=== PATIENT | male | born 1980 | race Caucasian/White ===

== ENCOUNTER 2018-04-01 05:44 | Emergency (ER) | payer OTHER ==
[2018-04-01 05:55] VITALS: RESP 18; TEMP 98.1
[2018-04-01] MEDS ORDERED: PROPARACAINE 0.5% OPHTH DROPS 15 ML BTL BOTH EYES STA (06:21)
[2018-04-01] MEDS ORDERED: DIPH,PERTUS(ACELL)TETVAC-LF 0.5 ML VIAL IM ONE (07:24)
[2018-04-01] MEDS ORDERED: TROPICAMIDE 1% OPHTH DROPS 2 ML BTL RIGHT EYE STA (07:24)
--- NOTE | 2018-04-01 07:31 | ED ---
Eye Problem HPI - General Source: patient Mode of arrival: ambulatory Limitations: no limitations - History of Present Illness chief complaint: eye pain, eye redness -: hour(s) Onset Description: gradual Location: right eye Place: home If Injury: none Eye Symptoms: redness, pain, photophobia Severity: severe If Pain, Quality: aching Consistency: constant Associated Symptoms: none Treatments Prior to Arrival: none - Related Data Patient Tetanus UTD: No <Krystian Rodriguez - Last Filed: 04/01/18 07:26> <Jose Carlos Chavis - Last Filed: 04/01/18 09:18> - General Chief complaint: Eye Problems Stated complaint: eye problems Time Seen by Provider: 04/01/18 06:29 - History of Present Illness Initial comments: This patient is a 38-year-old man who presents with complaint of right I redness , pain, and photosensitivity. 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 He did not have any welding exposure. The patient states he was feeling like his usual self when he went to sleep, and was awakened early this morning by pain and redness. He states that it did not allow him to go back to sleep and then he felt he should be evaluated here. Patient denies any injury to the eye. He states that his vision is normal, but that he has some much pain with light he is not able to keep the eye open. Denies any history of previous ophthalmologic issues. (Krystian Rodriguez) - Related Data Home Medications Medication Instructions Recorded Confirmed Naproxen Sodium [Aleve] 220 mg PO DAILY PRN 04/01/18 04/01/18 Allergies Allergy/AdvReac Type Severity Reaction Status Date / Time No Known Allergies Allergy Verified 04/01/18 07:38 Review of Systems ROS Other: All systems not noted in ROS Statement are negative. Constitutional: Denies: fever, chills Eyes: Reports: eye pain ENT: Denies: throat pain, congestion Respiratory: Denies: cough, dyspnea Cardiovascular: Denies: chest pain Gastrointestinal: Denies: abdominal pain, nausea, vomiting Skin: Denies: rash Neurological: Denies: headache <Krystian Rodriguez - Last Filed: 04/01/18 07:26> ROS Other: All systems not noted in ROS Statement are negative. <Jose Carlos Chavis - Last Filed: 04/01/18 09:18> ROS Statement: Those systems with pertinent positive or pertinent negative responses have been documented in the HPI. Past Medical History Additional Past Medical History / Comment(s): chronic back pain, RIGHT SHOULDER INJURY History of Any Multi-Drug Resistant Organisms: None Reported Past Surgical History: No Surgical Hx Reported Past Psychological History: No Psychological Hx Reported Smoking Status: Current every day smoker Past Alcohol Use History: Rare Past Drug Use History: Marijuana <Krystian Rodriguez - Last Filed: 04/01/18 07:26> General Exam Limitations: no limitations General appearance: alert, in no apparent distress Head exam: Present: atraumatic, normocephalic Eye exam: Present: conjunctival injection (Right). Absent: PERRL, EOMI, scleral icterus, nystagmus, periorbital swelling, periorbital tenderness ENT exam: Present: normal oropharynx Neck exam: Present: normal inspection, full ROM. Absent: lymphadenopathy Skin exam: Present: warm, dry, intact, normal color. Absent: rash <Krystian Rodriguez - Last Filed: 04/01/18 07:26> Vital Signs 04/01/18 05:49 Temperature 98.1 F Pulse Rate 85 Respiratory 18 Rate Blood Pressure 120/85 O2 Sat by Pulse 94 L Oximetry Medical Decision Making <Krystian Rodriguez - Last Filed: 04/01/18 07:26> <Jose Carlos Chavis - Last Filed: 04/01/18 09:18> - Medical Decision Making Patient is a 38-year-old man with acute onset of right thigh redness and pain. I did check the intraocular pressure using the iCare device and the pressure is 19 in the affected eye and 12 in the normal eye. Slit lamp exam reveals that there is conjunctival injection. There is chemosis. The remainder of the exam is limited as patient is having significant photophobia. Will attempt to instill cycloplegic and repeat the exam. (Krystian Rodriguez) Patient did have some relief with cycloplegicsr. Patient still has mild discomfort and case discussed with ophthalmology Dr. Martin who will see the patient office now. Patient will be discharged directly to his office. (Jose Carlos Chavis) Disposition <Krystian Rodriguez - Last Filed: 04/01/18 07:26> Is patient prescribed a controlled substance at d/c from ED?: No Time of Disposition: 09:18 <Jose Carlos Chavis - Last Filed: 04/01/18 09:18> Clinical Impression: Acute right eye pain Disposition: HOME SELF-CARE Condition: Stable Instructions: Eye Pain (ED) Additional Instructions: Go directly to Dr. Martin's office.Please return to the Emergency Department if symptoms worsen or any other concerns. Referrals: Gino Stephens MD [Primary Care Provider] - 1-2 days Ned Martin MD [STAFF PHYSICIAN] - 1-2 days
--- NOTE | 2018-04-01 08:16 | CT ---
EXAMINATION TYPE: CT orbits wo con DATE OF EXAM: 04/01/2018 COMPARISON: None HISTORY: RT eye pain, no injury. Difficulty opening, light sensitive. CT DLP: 453.80 mGycm Automated exposure control for dose reduction was used. FINDINGS: The globes and lenses are symmetric. Extraocular muscles are also symmetric. Superior ophthalmic vein s are nonenlarged. There is no significant preseptal or post septal soft tissue swelling over either orbit. No intraconal or extraconal mass. No infraorbital or supraorbital soft tissue swelling. No rad iopaque foreign body is seen. Old fracture deformity of the nasal septum is present with leftward deviation. Moderate mucosal thick ening in the ethmoid sinuses is seen. Remaining paranasal sinuses and visualized mastoid air cells ar e well aerated. Evaluation of the brain parenchyma is limited given technique. Mandibular condyles ar e located within the mandibular fossa. IMPRESSION: NO CT FINDING TO CORRESPOND TO THE PATIENT'S RIGHT EYE PAIN. NO GLOBE RUPTURE, LENS DISLOCATION, PRES EPTAL OR POST SEPTAL INFLAMMATORY CHANGE, FLUID COLLECTION, OR EXTRACONAL/INTRACONAL MASS. NO RADIOPA QUE FOREIGN BODY.
[2018-04-01 09:29] VITALS: BP 110/73; PULSE 58
== END 2018-04-01 09:29 | disposition home or self-care (01) ==
LOC: EC 05:44
DX: H57.11 Ocular pain, right eye (principal); H53.141 Visual discomfort, right eye; F17.200 Nicotine dependence, unspecified, uncomplicated; Z23 Encounter for immunization
CPT/HCPCS: 70480; 90471; 90715; 99283

== ENCOUNTER 2020-12-14 16:41 | Emergency (ER) | payer OTHER ==
[2020-12-14 16:51] VITALS: RESP 18
[2020-12-14] MEDS ORDERED: SODIUM CHLORIDE 0.9% 1,000 ML IV STA (17:08)
[2020-12-14] MEDS ORDERED: KETOROLAC 15 MG/ML 1 ML VIAL IVP STA (17:34)
--- NOTE | 2020-12-14 17:37 | ED ---
General Adult HPI - General Chief complaint: Chest Pain Stated complaint: Med reaction/light headed Time Seen by Provider: 12/14/20 16:52 Source: patient, RN notes reviewed, old records reviewed Mode of arrival: wheelchair Limitations: no limitations - History of Present Illness Initial comments: 40-year-old male presenting with 2 separate complaints, first complaint is suspected medication reaction, patient had taken Levaquin approximately 2 hours prior to arrival. One hour prior to arrival he began feeling some chest tightness, and bilateral tingling in his extremities. His symptoms have subsequently resolved. He has never taken Levaquin before. He was prescribed Levaquin for infection in his the anal region which has been present for the past several days. He's felt generally unwell and has had pain in the area. No drainage. No measured fever. This is why he was prescribed antibiotic by his primary care physician. - Related Data Home Medications Medication Instructions Recorded Confirmed Levofloxacin [Levaquin] 500 mg PO DAILY 12/14/20 12/14/20 Previous Rx's Medication Instructions Recorded Amoxic-Pot Clav 875-125Mg 1 tab PO BID 14 Days #28 tab 12/14/20 [Augmentin 875-125] Allergies Allergy/AdvReac Type Severity Reaction Status Date / Time No Known Allergies Allergy Verified 12/14/20 18:01 Review of Systems ROS Statement: Those systems with pertinent positive or pertinent negative responses have been documented in the HPI. ROS Other: All systems not noted in ROS Statement are negative. Past Medical History Past Medical History: No Reported History Additional Past Medical History / Comment(s): chronic back pain, RIGHT SHOULDER INJURY History of Any Multi-Drug Resistant Organisms: None Reported Past Surgical History: No Surgical Hx Reported Past Psychological History: No Psychological Hx Reported Smoking Status: Current every day smoker Past Alcohol Use History: Rare Past Drug Use History: Marijuana General Exam Limitations: no limitations General appearance: alert, in no apparent distress Head exam: Present: atraumatic, normocephalic Eye exam: Present: normal appearance, PERRL ENT exam: Present: mucous membranes dry Neck exam: Present: normal inspection. Absent: tenderness, meningismus Respiratory exam: Present: normal lung sounds bilaterally. Absent: respiratory distress, wheezes Cardiovascular Exam: Present: regular rate, normal rhythm GI/Abdominal exam: Present: soft. Absent: distended, tenderness, guarding, rebound Rectal exam: Present: tenderness (Tenderness and fullness in the right superior gluteal region with surrounding cellulitis. There is an indurated swelling at the 3 o'clock position to the anus. No fluctuance.) Extremities exam: Present: normal inspection, full ROM Back exam: Present: normal inspection, full ROM Neurological exam: Present: alert, oriented X3, CN II-XII intact. Absent: motor sensory deficit Psychiatric exam: Present: normal affect, normal mood Skin exam: Present: warm, dry, intact. Absent: cyanosis, diaphoretic Course Vital Signs 12/14/20 12/14/20 16:48 19:24 Temperature 97.7 F 98.6 F Pulse Rate 81 65 Respiratory 18 18 Rate Blood Pressure 101/73 105/71 O2 Sat by Pulse 97 97 Oximetry EKG Findings - EKG Comments: EKG Findings:: EKG: Normal sinus rhythm, rate of 69, MT interval 184, QRS duration 84, QTC 409, no ST segment elevation Medical Decision Making - Medical Decision Making 40-year-old male presenting with suspected drug reaction. Shortly after taking Levaquin he began having some chest tightness and numbness and tingling in bilateral upper extremities. The symptoms resolved without specific treatment in the emergency department. He does have a perirectal abscess on CT imaging. On exam there is a induration with no fluctuance or drainable abscess at this time. I did discuss this with Dr. Raúl smith for general surgery. He does recommend changing antibiotics given the likely reaction to Levaquin and outpatient follow-up with strict return parameters. Return parameters discussed with the patient cleaning worsening pain or swelling, fever. Patient started on Augmentin and will follow up as an outpatient at this time. - Lab Data Result diagrams: 12/14/20 17:18 12/14/20 17:18 Lab Results 12/14/20 12/14/20 12/14/20 Range/Units 17:18 17:18 17:18 WBC 9.8 (3.8-10.6) k/uL RBC 4.51 (4.30-5.90) m/uL Hgb 14.3 (13.0-17.5) gm/dL Hct 43.1 (39.0-53.0) % MCV 95.7 (80.0-100.0) fL MCH 31.7 (25.0-35.0) pg MCHC 33.1 (31.0-37.0) g/dL RDW 13.1 (11.5-15.5) % Plt Count 224 (150-450) k/uL MPV 7.5 Neutrophils % 70 % Lymphocytes % 20 % Monocytes % 7 % Eosinophils % 1 % Basophils % 0 % Neutrophils # 6.8 (1.3-7.7) k/uL Lymphocytes # 2.0 (1.0-4.8) k/uL Monocytes # 0.7 (0-1.0) k/uL Eosinophils # 0.1 (0-0.7) k/uL Basophils # 0.0 (0-0.2) k/uL PT 10.1 (9.0-12.0) sec INR 0.9 (<1.2) APTT 23.1 (22.0-30.0) sec Sodium 138 (137-145) mmol/L Potassium 3.8 (3.5-5.1) mmol/L Chloride 102 (98-107) mmol/L Carbon Dioxide 27 (22-30) mmol/L Anion Gap 9 mmol/L BUN 13 (9-20) mg/dL Creatinine 0.73 (0.66-1.25) mg/dL Est GFR (CKD-EPI)AfAm >90 (>60 ml/min/1.73 sqM) Est GFR (CKD-EPI)NonAf >90 (>60 ml/min/1.73 sqM) Glucose 120 H (74-99) mg/dL Calcium 9.1 (8.4-10.2) mg/dL Magnesium 2.1 (1.6-2.3) mg/dL Total Bilirubin 0.5 (0.2-1.3) mg/dL AST 24 (17-59) U/L ALT 19 (4-49) U/L Alkaline Phosphatase 74 (38-126) U/L Troponin I (0.000-0.034) ng/mL Total Protein 7.2 (6.3-8.2) g/dL Albumin 4.0 (3.5-5.0) g/dL 12/14/20 Range/Units 17:18 WBC (3.8-10.6) k/uL RBC (4.30-5.90) m/uL Hgb (13.0-17.5) gm/dL Hct (39.0-53.0) % MCV (80.0-100.0) fL MCH (25.0-35.0) pg MCHC (31.0-37.0) g/dL RDW (11.5-15.5) % Plt Count (150-450) k/uL MPV Neutrophils % % Lymphocytes % % Monocytes % % Eosinophils % % Basophils % % Neutrophils # (1.3-7.7) k/uL Lymphocytes # (1.0-4.8) k/uL Monocytes # (0-1.0) k/uL Eosinophils # (0-0.7) k/uL Basophils # (0-0.2) k/uL PT (9.0-12.0) sec INR (<1.2) APTT (22.0-30.0) sec Sodium (137-145) mmol/L Potassium (3.5-5.1) mmol/L Chloride (98-107) mmol/L Carbon Dioxide (22-30) mmol/L Anion Gap mmol/L BUN (9-20) mg/dL Creatinine (0.66-1.25) mg/dL Est GFR (CKD-EPI)AfAm (>60 ml/min/1.73 sqM) Est GFR (CKD-EPI)NonAf (>60 ml/min/1.73 sqM) Glucose (74-99) mg/dL Calcium (8.4-10.2) mg/dL Magnesium (1.6-2.3) mg/dL Total Bilirubin (0.2-1.3) mg/dL AST (17-59) U/L ALT (4-49) U/L Alkaline Phosphatase (38-126) U/L Troponin I <0.012 (0.000-0.034) ng/mL Total Protein (6.3-8.2) g/dL Albumin (3.5-5.0) g/dL Disposition Clinical Impression: Perianal abscess Disposition: HOME SELF-CARE Instructions (If sedation given, give patient instructions): Rectal Abscess (ED) Prescriptions: Amoxic-Pot Clav 875-125Mg [Augmentin 875-125] 1 tab PO BID 14 Days #28 tab Is patient prescribed a controlled substance at d/c from ED?: No Referrals: Gino Stephens MD [Primary Care Provider] - 1-2 days Rustam Olsen DO [Doctor of Osteopathic Medicine] - 1-2 days Time of Disposition: 19:43
[2020-12-14 17:41] LABS: Basophils % (A) 0 %; Eosinophils # (A) 0.1 k/uL (0-0.7); Eosinophils % (A) 1 %; HCT 43.1 % (39.0-53.0); HGB 14.3 gm/dL (13.0-17.5); Lymphocytes % (A) 20 %; MCH 31.7 pg (25.0-35.0); MCHC 33.1 g/dL (31.0-37.0); MCV 95.7 fL (80.0-100.0); Mean Platelet Volume 7.5; Monocytes # (A) 0.7 k/uL (0-1.0); Monocytes % (A) 7 %; Neutrophils # (A) 6.8 k/uL (1.3-7.7); Neutrophils % (A) 70 %; Platelet Count 224 k/uL (150-450); RBC 4.51 m/uL (4.30-5.90); RDW 13.1 % (11.5-15.5); WBC 9.8 k/uL (3.8-10.6)
[2020-12-14 17:54] LABS: INR 0.9 (<1.2); Partial Thromboplastin Time 23.1 sec (22.0-30.0); Prothrombin Time 10.1 sec (9.0-12.0)
[2020-12-14 17:56] LABS: ALT 19 U/L (4-49); AST 24 U/L (17-59); African American GFR (CKD) >90 (>60 ml/min/1.73 sqM); Alkaline Phosphatase 74 U/L (38-126); Anion Gap 9 mmol/L; Blood Urea Nitrogen 13 mg/dL (9-20); Calcium 9.1 mg/dL (8.4-10.2); Carbon Dioxide 27 mmol/L (22-30); Chloride 102 mmol/L (98-107); Glucose 120 mg/dL (74-99); Magnesium 2.1 mg/dL (1.6-2.3); Non-African American GFR(CKD) >90 (>60 ml/min/1.73 sqM); Potassium 3.8 mmol/L (3.5-5.1); Sodium 138 mmol/L (137-145); Total Bilirubin 0.5 mg/dL (0.2-1.3); Total Protein 7.2 g/dL (6.3-8.2)
--- NOTE | 2020-12-14 18:11 | CT ---
EXAMINATION TYPE: CT abdomen pelvis w con DATE OF EXAM: 12/14/2020 COMPARISON: None HISTORY: Jesse rectal abscess. CT DLP: 907.1 mGycm Automated exposure control for dose reduction was used. CONTRAST: Performed with IV Contrast, patient injected with 100 mL of Isovue M300. Images obtained from the diaphragm to the floor the pelvis with IV contrast. Lung bases show minimal subsegmental atelectasis. There is no pleural effusion. Heart size is normal. There is no pericardial effusion. Liver spleen stomach pancreas gallbladder appear normal. The bile ducts are not dilated. There is no adrenal mass. The kidneys show satisfactory contrast opacification. There is no hydroneph rosis. Delayed images show normal renal excretion. There is no retroperitoneal adenopathy. Appendix a ppears normal. Bladder distends smoothly. There is no inguinal hernia. There is no free fluid in the pelvis. There are some sigmoid diverticula. There is no diverticulitis. There is no mesenteric edema. There is no ascites or free air. There is no bowel obstruction. There is a 2.8 x 1.2 cm fluid collection posterior to the anus on the right side consistent with jesse anal abscess. The lumbar vertebra have fairly normal alignment. There is L5 spondylolysis without any significant s pondylolisthesis. There is no compression fracture. The bony pelvis is intact. The hip joints are int act. IMPRESSION: Right side posterior perianal abscess. Sigmoid diverticulosis without diverticulitis. L5 spondylolysis without spondylolisthesis.
[2020-12-14] MEDS ORDERED: PIPERACILLIN-TAZOBACTAM 3.375 GM in SODIUM CHLORIDE 0.9% 100 ML IVPB STA (19:23)
--- NOTE | 2020-12-14 19:23 | XR ---
EXAMINATION TYPE: XR chest 2V DATE OF EXAM: 12/14/2020 COMPARISON: 03/04/2016 HISTORY: Chest discomfort. Chest pain. TECHNIQUE: FINDINGS: There is no heart failure nor confluent pneumonic infiltrate. Costophrenic angles are clear . There are no hilar masses. There are chest leads. Bony thorax is intact. IMPRESSION: No active cardiopulmonary disease. Normal heart. No change.
[2020-12-14 19:25] VITALS: BP 105/71; PULSE 65; TEMP 98.6
== END 2020-12-14 20:47 | disposition home or self-care (01) ==
LOC: EC 16:41
DX: K61.0 Anal abscess (principal); F17.200 Nicotine dependence, unspecified, uncomplicated; F12.90 Cannabis use, unspecified, uncomplicated
CPT/HCPCS: 36415; 71046; 74177; 80053; 83735; 84484; 85025; 85610; 85730; 87040; 93005; 96374; 96375; 99283